=== PATIENT | female | born 1970 | race Caucasian/White ===

== ENCOUNTER → 2016-03-26 | Outpatient (CLI) | payer BC ==
[~2016-03-26] MED LIST: AMOX500C2 PO; BENAZAPRIL; ESTR0.5T PO; FLUC100T PO; HYDR-3730 PO; MTP25TSR PO; OFLO5DRO7 OT; SERT25TA PO
--- OUTSIDE RECORDS SUMMARY | 2016-03-26 13:00 | XMS REPORT | Continuity of Care Document ---
Author Author [facility] Organization [facility] Address Unknown Phone Unavailable Care Team Providers Care Accountant Auditor Name Role Phone DONNELL YOUSSEF DO PCP Insurance Providers Payer Name Policy Number Subscriber Name Relationship [id number] Jessy Jimenes 01 Advance Directives Directive Response Recorded Date/Time Advance Directives No 01/23/16 2:28pm Health Care Power of Heavy Equipment Engine Mechanic No 01/23/16 2:28pm Organ Donor Yes 01/23/16 2:28pm Resuscitation Status Full Code 01/23/16 2:28pm Chief Complaint and Reason for Visit Chief Complaint Ear Problems Reason for Visit recent tympanic membrane perforation Problems Active Problems Medical Problem Onset Date Status Acute otitis media with perforated tympanic membrane Unknown Acute Medications Current Home Medications Medication Dose Units Route Directions Days/Qty Instructions Start Date Sertraline Hcl 25 Mg 25 Mg Oral 04/13/11 [Benazapril] 04/13/11 Metoprolol Succinate 25 Mg 1 Each Oral Daily 15 04/13/11 Estradiol 0.5 Mg 0.5 Mg Oral Bedtime 04/23/11 Fluconazole 100 Mg 100 Mg Oral Daily 10 01/21/16 Amoxicillin 500 Mg 1,000 Mg Oral Three Times A Day 42 01/21/16 Hydrocodone/Acetaminophen 1 Each 1 Each Oral Every 4HRS as needed for Pain 20 01/21/16 Ofloxacin 5 Ml 10 Drops Otic Twice A Day 1 10 drops to the left ear BID x7-10 d 01/21/16 Social History Social History Problem Response Recorded Date/Time Alcohol Use Denies Use 01/23/2016 2:28pm Recreational Drug Use No 01/23/2016 2:28pm Recent Foreign Travel No 01/23/2016 2:25pm Recent Infectious Disease Exposure No 01/23/2016 2:25pm Hospitalization with Isolation Denies 01/23/2016 2:25pm Smoking Status Never a Smoker 01/23/2016 2:28pm Recent Hopitalizations No 01/23/2016 2:28pm Hospitalization with Isolation Denies 01/23/2016 2:25pm Query Response Start Date Stop Date Smoking Status Never a Smoker Hospital Discharge Instructions No hospital discharge instructions. Plan of Care Discharge Date 01/23/16 3:48pm Disposition 01 HOME, SELF-CARE Condition at Discharge Stable/Unchanged Instructions/Education Provided Ruptured Eardrum (DC) Prescriptions See Medication Section Referrals DONNELL YOUSSEF DO - Primary Care Physician Additional Instructions/Education All discharge instructions reviewed with patient and/or family. Voiced understanding. Continue present antibiotics Make an appointment to see Dr. King for expert follow-up Functional Status No functional status results. Allergies, Adverse Reactions, Alerts No known allergies. Immunizations No immunization records. Vital Signs Acute Vital Signs Vital Response Date/Time Temperature (Fahrenheit) 98.4 degrees F (97.6 - 99.5) 01/23/2016 4:01pm Temperature (Calculated Celsius) 36.14738 degrees C (36.4 - 37.5) 01/23/2016 4:01pm Temperature Source Temporal 01/23/2016 4:01pm Pulse Rate (adult) 80 bpm (60 - 90) 01/23/2016 4:01pm Pulse Rate (Schoolage 6-12yrs) 68 bpm (60 - 90) 01/21/2016 6:40pm Respiratory Rate 18 bpm (12 - 24) 01/23/2016 4:01pm O2 Sat by Pulse Oximetry 97 % (88 - 100) 01/23/2016 4:01pm Respiratory Rate (SchoolAge 6-12yrs) 18 bpm (16 - 22) 01/21/2016 6:40pm Blood Pressure 120/78 mm Hg 01/23/2016 4:01pm Blood Pressure Systolic (SchoolAge 6-12yrs) 113 mm Hg (100 - 115) 2015 6:40pm Blood Pressure Diastolic (SchoolAge 6-12yrs) 63 mm Hg (60 - 65) 2015 6:40pm Blood Pressure Mean 92 mm Hg 01/23/2016 2:25pm Pain Numeric Pain Scale 7 01/23/2016 4:01pm Height (Feet) 5 feet 01/23/2016 2:25pm Height (Inches) 0 inches 01/23/2016 2:25pm Height (Calculated Centimeters) 152.860824 cm 01/23/2016 2:25pm Weight (Pounds) 200 pounds 01/23/2016 2:25pm Weight (Calculated Grams) 91656.475 gm 01/23/2016 2:25pm Weight (Calculated Kilograms) 90.725225 kilograms 01/23/2016 2:25pm Calculated BMI 39.06 01/23/2016 2:25pm Capillary Refill Capillary Refill Less Than 3 Seconds 01/23/2016 2:25pm Results No known relevant diagnostic tests, laboratory data and/or discharge summary. Procedures No known history of procedures. Encounters Encounter Location Arrival/Admit Date Discharge/Depart Date Attending Provider Registered Emergency Room [facility] 01/23/16 2:20pm CROW MUSA MD Departed Emergency Room [facility] 01/21/16 6:23pm 01/20 8:43pm YANG MCKEON Recent Diagnosis
--- NOTE | 2016-03-26 15:18 | Diagnostic Imaging Report ---
Left shoulder. INDICATION: Left axillary mass. FINDINGS: Three views were obtained. There is no fracture, dislocation, or acute bony abnormality evident. There is moderate degenerative disease of the shoulder joint. Soft tissues are unremarkable. In particular, there is no sign of an axillary mass. IMPRESSION: 1. There is no evidence for an acute bony abnormality. 2. There is no sign of a left axillary mass. Reportedly, ultrasound of the left axilla is pending for further evaluation. Dictated by: Dictated on workstation # [id number]
--- NOTE | 2016-03-26 19:26 | Diagnostic Imaging Report ---
Ultrasound left breast INDICATION: Left axillary mass At the time of the previous bilateral diagnostic mammogram and left breast ultrasound exam of 02/13/15, there was clinical concern regarding a palpable abnormality in the upper-outer aspect of the left breast. Those exams fail to show any sign of malignancy or of a cystic mass. On this study, there is still no discrete solid or cystic mass within the left upper outer quadrant or axilla. If there is indeed a clinically palpable mass present, then biopsy should still be considered. IMPRESSION: 1. There is no discrete solid or cystic mass in the upper-outer aspect of the left breast or left axilla. Clinical followup is recommended. 2. I would recommend that the patient have her annual bilateral screening mammogram within the next month. ACR BI-RADS Category 1: Negative. Dictated by: Dictated on workstation # [id number]
== END ==
LOC: RAD 12:55
PROVIDERS: ATTEND Surgery
DX: N63 Unspecified lump in breast (principal)
CPT/HCPCS: 73030; 76642

== ENCOUNTER 2016-10-05 15:15 | Emergency (ER) | payer BC ==
[~2016-10-05] VITALS: Ht 152.4 cm; Wt 95.3 kg
[2016-10-05] MEDS ORDERED: LISI1TAB8 (15:35)
[2016-10-05] MEDS ORDERED: DEXT20TA8 (15:35)
[2016-10-05] MEDS ORDERED: NAPR500T PO (15:41)
--- NOTE | 2016-10-05 15:41 | ED Upper Extremity ---
General Chief Complaint: Upper Extremity Stated Complaint: RT SHOULDER PAIN Nursing Triage Note: pt reports injury to r shoulder 3 years ago but worse the past two days. pt reports pain when lift with her arm straight. pt reports it feels like "my shoulder is locked up" Nursing Sepsis Screen: No Definite Risk Source: patient Exam Limitations: no limitations History of Present Illness Time seen by provider: 15:38 Initial Comments ER with right shoulder pain worse with full extension began last night. No history of this. No known injury, though she has been doing a lot of painting recently. Onset: yesterday Severity: moderate Pain/Injury Location: right shoulder Method of Injury: sports injury Modifying Factors: Worse With Movement Allergies and Home Medications Allergies Coded Allergies: No Known Drug Allergies (Unverified , 04/13/11) Home Medications Dextroamphetamine/Amphetamine 20 Mg Tablet, #90 (Reported) Hydrocodone/Acetaminophen 1 Each Tablet, 1 EACH PO Q4H PRN for PAIN-MODERATE, # 10 Prescribed by: DIMITRY FOFANA on 10/05/16 1558 Lisinopril/Hydrochlorothiazide 1 Each Tablet, #30 (Reported) Naproxen 500 Mg Tablet, 500 MG PO BID PRN for PAIN-MODERATE TO SEVERE, #20 Prescribed by: DIMITRY FOFANA on 10/05/16 1541 [Benazapril] , (Reported) Constitutional: see HPI EENTM: see HPI Respiratory: no symptoms reported Cardiovascular: no symptoms reported Genitourinary: no symptoms reported Musculoskeletal: see HPI Skin: no symptoms reported Psychiatric/Neurological: No Symptoms Reported Past Cyiillf-Wrqcgb-Mxpabn Hx Patient Social History Alcohol Use: Occasionally Uses Recreational Drug Use: No Smoking Status: Never a Smoker Recent Foreign Travel: No Contact w/Someone Who Travel: No Recent Infectious Disease Expo: No Recent Hopitalizations: No Immunizations Up To Date Tetanus Booster (TDap): Unknown Surgeries HX Surgeries: Yes Surgeries: Bladder Surgery, Gallbladder, Hysterectomy Respiratory Hx Respiratory Disorders: No Cardiovascular Hx Cardiac Disorders: Yes Cardiac Disorders: Hypertension Neurological Hx Neurological Disorders: No Genitourinary Hx Genitourinary Disorders: No Gastrointestinal Hx Gastrointestinal Disorders: No Musculoskeletal Hx Musculoskeletal Disorders: No Endocrine Hx Endocrine Disorders: No HEENT HX ENT Disorders: No Cancer Hx Cancer: No Psychosocial Hx Psychiatric Problems: Yes Behavioral Health Disorders: Depression Blood Transfusions Adverse Reaction to a Blood Tr: No Physical Exam Vital Signs Vital Sign - Last 12Hours 10/05/16 15:27 Temp 97.1 Pulse 90 Resp 18 B/P (MAP) 144/94 Pulse Ox 100 Capillary Refill : Less Than 3 Seconds General Appearance: WD/WN, no apparent distress HEENT: PERRL/EOMI, normal ENT inspection Neck: non-tender, full range of motion Respiratory: no respiratory distress, no accessory muscle use Gastrointestinal: normal bowel sounds, non tender, soft Shoulder: normal inspection, No deformity, No ecchymosis, limited ROM, pain, No soft tissue tenderness, No swelling Elbow/Forearm: normal inspection, non-tender Wrist: Yes normal inspection, Yes non-tender Hand: normal inspection, non-tender Neurologic/Tendon: normal sensation, normal motor functions, normal tendon functions Neurologic/Psychiatric: acidizer II-XII nml as tested, no motor/sensory deficits, alert, normal mood/affect, oriented x 3 Skin: normal color, warm/dry Progress/Results/Core Measures Results/Orders My Orders Orders - DIMITRY FOFANA APRN Shoulder, Right, 3 Views (10/05/16 15:35) Vital Signs/I&O Vital Sign - Last 12Hours 10/05/16 15:27 Temp 97.1 Pulse 90 Resp 18 B/P (MAP) 144/94 Pulse Ox 100 Blood Pressure Mean: 111 Departure Impression Impression: Primary Impression: Internal derangement of right shoulder Disposition: 01 HOME, SELF-CARE Condition: Stable Departure-Patient Inst. Decision time for Depature: 15:40 Referrals: MICHAEL TOWNSEND MD, JOHN T MD STRINGER, ROBERT F DO SULLIVAN, WILLIAM J DO (PCP/Family) Primary Care Physician ZACK SALVADOR MD Patient Instructions: How to Use a Shoulder Sling Add. Discharge Instructions: 1. I'll up with Dr. Pearson this Wednesday 11 a.m. for further evaluation All discharge instructions reviewed with patient and/or family. Voiced understanding. Scripts Hydrocodone/Acetaminophen ([place] 5-325 Tablet) 1 Each Tablet 1 EACH PO Q4H Y for PAIN-MODERATE, #10 TAB Prov: DIMITRY FOFANA APRN 10/05/16 Naproxen (Naprosyn) 500 Mg Tablet 500 MG PO BID Y for PAIN-MODERATE TO SEVERE, #20 TAB Prov: DIMITRY FOFANA APRN 10/05/16 DIMITRY FOFANA APRN Oct 05, 2016 15:41
[2016-10-05] MEDS ORDERED: HYDR-757 PO (15:58)
--- NOTE | 2016-10-05 16:21 | Diagnostic Imaging Report ---
EXAMINATION: Three views of the right shoulder. INDICATION: Right shoulder pain. FINDINGS: No fracture, dislocation, or radiopaque foreign body. The glenohumeral and acromioclavicular joints appear unremarkable. IMPRESSION: Unremarkable exam. Dictated by: Dictated on workstation # [id number]
[2016-10-05 16:37] VITALS: BP 144/94
== END 2016-10-05 16:37 | disposition home or self-care (01) ==
LOC: EDUNIT# 15:15 → ER 15:17
DX: M24.811 Other specific joint derangements of right shoulder, not elsewhere classified (principal); F32.9 Major depressive disorder, single episode, unspecified; I10 Essential (primary) hypertension; Z90.710 Acquired absence of both cervix and uterus; Z87.828 Personal history of other (healed) physical injury and trauma
CPT/HCPCS: 73030; 99282

== ENCOUNTER → 2016-10-12 | Outpatient (CLI) | payer BC ==
[~2016-10-12] MED LIST changes: +DEXT20TA8; +HYDR-757 PO; +LISI1TAB8; +NAPR500T PO
--- NOTE | 2016-10-12 11:45 | Diagnostic Imaging Report ---
PROCEDURE: MRI right joint upper extremity without contrast. TECHNIQUE: Multiplanar, multisequence non contrast-enhanced MRI of the right upper extremity was accomplished. INDICATION: Right shoulder pain. There are no previous MRI examinations available for comparison. The plain film examination of the right shoulder performed on 10/05/2016, failed to show any sign of an acute abnormality. On the T2 fat-saturated coronal series of this exam, there is a very small area of slightly increased signal along the anterior insertion of the rotator cuff. I suspect that this represents a small rim-rent tear. The supraspinatus muscle itself is not retracted or bunched. The acromioclavicular joint is hypertrophied, and this does result in mild narrowing of the outlet for the supraspinatus muscle. The biceps tendon and the subscapularis tendon are intact. There is no evidence for a tear of the labrum. There is no sign of a joint effusion. There is no abnormal signal arising from the osseous structures to suggest bone edema or a fracture. IMPRESSION: 1. There is a small rim-rent tear along the anterior insertion of the rotator cuff. The supraspinatus muscle is not retracted or bunched, however. 2. There is hypertrophy of the acromioclavicular joint, and this does result in mild narrowing of the outlet for the supraspinatus muscle. 3. The labrum is intact. 4. There is no sign of an acute bony abnormality. Dictated by: Dictated on workstation # [id number]
== END ==
LOC: RAD 08:34
PROVIDERS: ATTEND Nurse Practitioner Family
DX: M25.511 Pain in right shoulder (principal)
CPT/HCPCS: 73221

== ENCOUNTER → 2017-07-20 | Outpatient (CLI) | payer BC ==
[~2017-07-20] MED LIST changes: +NAPR-1071 PO; -NAPR500T PO
--- NOTE | 2017-07-20 13:46 | Diagnostic Imaging Report ---
INDICATION: Low back pain. TECHNIQUE: Three views of the lumbar spine were obtained. FINDINGS: The alignment of the lumbar spine is normal. The vertebral body heights are well-maintained. There is no spondylolysis or spondylolisthesis. No fractures are identified. IMPRESSION: Unremarkable lumbar spine series. Dictated by: Dictated on workstation # [id number]
== END ==
LOC: RAD 12:48
PROVIDERS: ATTEND Nurse Practitioner Family
DX: M54.16 Radiculopathy, lumbar region (principal)
CPT/HCPCS: 72100

== ENCOUNTER → 2017-07-28 | Outpatient (CLI) | payer BC ==
--- NOTE | 2017-07-28 17:15 | Diagnostic Imaging Report ---
PROCEDURE: MRI lumbar spine. TECHNIQUE: Multiplanar, multisequence MRI of the lumbar spine was performed without contrast. INDICATION: Back pain. The previous MRI lumbar spine exam performed on 10/23/14 noted moderate facet arthropathy of the lumbar spine. There was no evidence for central canal or neuroforaminal stenosis, however. FINDINGS: On the T2 sagittal series of this exam, the vertebral body heights and alignment are within normal limits and similar to the prior study. The intervertebral spaces are fairly well maintained although there is desiccation of the disc at every level. As noted on the prior exam, there is facet arthropathy at L5-S1 and L4-L5 and L3-L4. Those findings do not seem to have changed significantly since the prior exam. As on the previous study, the L4-L5 level appears to be the most significantly affected. However, there is still no evidence for central stenosis at any of these levels. There is no neuroforaminal narrowing either. The remainder of the lumbar spine is unchanged when compared to the prior study. No new abnormality has developed. There is no abnormal signal arising from the cord or the vertebral bodies to indicate an acute abnormality. There is no sign of a paraspinal mass. IMPRESSION: 1. The facet arthropathy at L3-L4, L4-L5 and L5-S1 noted on the prior exam has not progressed significantly. There is still no evidence for spinal stenosis or nerve root encroachment at any level. 2. The remainder of the lumbar spine is also unremarkable for spinal stenosis or nerve root encroachment. 3. There is no sign of an acute bony abnormality or of a cord lesion. Dictated by: Dictated on workstation # [id number]
== END ==
LOC: RAD 16:12
PROVIDERS: ATTEND Nurse Practitioner Family
DX: M46.87 Other specified inflammatory spondylopathies, lumbosacral region (principal)
CPT/HCPCS: 72148

== ENCOUNTER → 2017-09-15 | Outpatient (CLI) | payer BC ==
--- NOTE | 2017-09-15 17:20 | Diagnostic Imaging Report ---
CLINICAL INDICATION: Patient having pain and stiffness in the neck for the past couple of months. EXAM: X-ray of the cervical spine, three views. COMPARISON: None. FINDINGS: There is no acute cervical spine fracture or dislocation. There is straightening of the cervical spine posture. There is mild facet arthropathy. The intervertebral disc heights are well maintained. There is no significant prevertebral soft tissue swelling. Odontoid views are unremarkable. IMPRESSION: 1: There is no acute fracture or dislocation. 2: There is straightening of the cervical spine posture with mild cervical spine degenerative disease. Dictated by: Dictated on workstation # [id number]
== END ==
LOC: RAD 16:42
PROVIDERS: ATTEND Internal Medicine
DX: M47.812 Spondylosis without myelopathy or radiculopathy, cervical region (principal)
CPT/HCPCS: 72040

== ENCOUNTER 2017-12-08 06:56 | Outpatient (CLI) | payer BC ==
[~2017-12-08] VITALS: Ht 152.4 cm; Wt 99.8 kg
[~2017-12-08 06:56] MED LIST changes: +HYDR-4226 PO; -HYDR-757 PO
[2017-12-08] MEDS ORDERED: LISI1TAB8 PO (15:19)
[2017-12-08] MEDS ORDERED: AMPH25CA3 PO (15:19)
== END 2017-12-08 15:27 | disposition home or self-care (01) ==
LOC: PREOP 06:56
PROVIDERS: ATTEND Surgery
DX: Z01.818 Encounter for other preprocedural examination (principal)

== ENCOUNTER 2017-12-13 09:51 | Day surgery (SDC) | payer BC ==
[~2017-12-13] VITALS: Ht 152.4 cm; Wt 99.8 kg
[~2017-12-13 09:51] MED LIST changes: +AMPH25CA3 PO; +LISI1TAB8 PO
[2017-12-13 10:00] VITALS: BP 109/75
[2017-12-13] MEDS ORDERED: NS IV 500 ML 500 ML IV PRN (10:05)
[2017-12-13] MEDS ORDERED: MIDAZOLAM 2 MG/2 ML (VERSED) VIAL IVP ONE (10:15)
[2017-12-13] MEDS ORDERED: fentaNYL INJECTION 100 MCG/2 ML AMP IVP ONE (10:15)
[2017-12-13] MEDS ORDERED: MIDAZOLAM 2 MG/2 ML (VERSED) VIAL ONE ×4 (13:12→13:13)
[2017-12-13] MEDS ORDERED: fentaNYL INJECTION 100 MCG/2 ML AMP ONE (13:12)
--- NOTE | 2017-12-13 14:00 | History & Physicial ---
History of Present Illness History of Present Illness Reason for visit/HPI to undergo colonoscopy to investigate rectal bleeding. In addition, she reports a family history of colon cancer in her grandmother. Date of Admission 12/13/17 Date Seen by a Provider: Dec 13, 2017 Time Seen by a Provider: 12:15 I consulted on this patient on 12/13/17 13:36 Attending Physician Joaquin Melendrez MD Admitting Physician Remy Pearson DO Consult Allergies and Home Medications Allergies Coded Allergies: No Known Drug Allergies (Unverified , 12/08/17) Home Medications Dextroamphetamine/Amphetamine 25 Mg Cap.er.24h, 25 MG PO DAILY, (Reported) Lisinopril/Hydrochlorothiazide 1 Each Tablet, 1 EACH PO DAILY, (Reported) Patient Home Medication List Home Medication List Reviewed: Yes Past Bvfydsd-Djetqj-Ebretc Hx Patient Social History Marrital Status: Employed/Student: employed Alcohol Use: Occasionally Uses Recreational Drug Use: No Smoking Status: Never a Smoker Recent Foreign Travel: No Contact w/other who traveled: No Recent Hopitalizations: No Recent Infectious Disease Expo: No Immunizations Up To Date Tetanus Booster (TDap): Unknown Seasonal Allergies Seasonal Allergies: Yes (MILD) Surgeries Yes Bladder Surgery, Gallbladder, Hysterectomy Respiratory No Currently Using CPAP: Yes Cardiovascular Yes Hypertension Neurological No Genitourinary No UTI-Chronic Gastrointestinal No Musculoskeletal No Endocrine History of Endocrine Disorders: No HEENT Loss of Vision: Bilateral Hearing Impairment: Denies Cancer No Psychosocial History of Psychiatric Problem: Yes Behavioral Health Disorders: Depression Integumentary History of Skin or Integumenta: No Blood Transfusions History of Blood Disorders: No Adverse Reaction to a Blood Tr: No (N/A) Family Medical History Family Hx: Colon cancer Review of Systems Constitutional: no symptoms reported EENTM: no symptoms reported Cardiovascular: no symptoms reported Gastrointestinal: see HPI Genitourinary: no symptoms reported Musculoskeletal: no symptoms reported Skin: no symptoms reported Psychiatric/Neurological: No Symptoms Reported Physical Exam Vital Signs Capillary Refill : Height, Weight, BMI Height: 5'0.00" Weight: 220lbs. 0.0oz. 99.452351gi; 43.0 BMI Method:Stated General Appearance: Anxious Neck: Normal Inspection Respiratory: Lungs Clear Cardiovascular: Regular Rate, Rhythm Gastrointestinal: Non Tender, Soft Rectal: Deferred Neurologic/Psychiatric: Alert, Oriented x3 Skin: Warm/Dry Assessment/Plan Assessment and Plan lady with a family history of colon cancer and symptoms of rectal bleeding. For colonoscopy Admission Diagnosis Admission Status: Other (Outpt Proc) JOAQUIN MELENDREZ MD Dec 13, 2017 14:00
--- NOTE | 2017-12-13 14:00 | Conscious Sedation/ASA ---
Conscious Sedation Pre-Proced Time 12:30 ASA Score 2 For ASA 3 and 4: Consider anesthesia and medical clearance. Also, for patients with a history of failed moderate sedation consider anesthesia. Airway Lungs Heart ASA score ASA 1: a normal healthy patient ASA 2: a patient with a mild systemic disease (mid diabetes, controlled hypertension, obesity ASA 3: a patient with a severe systemic disease that limits activity (angina , COPD, prior Myocardial infarction) ASA 4: a patient with an incapacitating disease that is a constant threat to life (CHF, renal failure) ASA 5: a moribund patient not expected to survive 24 hrs. (ruptured aneurysm) ASA 6: a declared brain patient whose organs are being harvested. For emergent operations, add the letter E after the classification Mallampati Classification Grade 2 Sedation Plan Discussed options with patient/fam The patient is an appropriate candidate to undergo the planned procedure, sedation, and anesthesia. The patient immediately re-assessed prior to indication. JOAQUIN MELENDREZ MD Dec 13, 2017 14:00
--- NOTE | 2017-12-13 14:04 | Endo Procedure Record ---
Endo Procedure Report Date of Procedure Last Colonoscopy: No Dec 13, 2017 Surgeon (s) JOAQUIN MELENDREZ MD Post Procedure/Op Diagnosis mild degree of internal hemorrhoids. Very few diverticula in the sigmoid colon Procedure Performed colonoscopy to cecum Description of Procedure Anesthesia Type: Conscious Sedation Specimen(s) collected/removed None Description of the Procedure Indication for procedure: This lady came in for colonoscopy to investigate rectal bleeding of 2 months duration and on the basis of a family history of colon cancer. Informed consent was obtained after reviewing the procedure in detail. Description of procedure: She was placed in left lateral position and her vital signs were monitored. Conscious sedation was achieved using Versed and fentanyl. Digital rectal examination was unremarkable. The colonoscope was then introduced into the rectum and advanced to the cecum. The quality of bowel preparation was acceptable. The scope was then withdrawn slowly and the mucosa examined in a systematic fashion. Findings: 1. A mild degree of internal hemorrhoids, the possible source of her bleeding 2. Very few sigmoid diverticulae she tolerated the procedure well and was taken back to the nursing area in a stable condition. Impression: Rectal bleeding due to internal hemorrhoids. Would recommend conservative therapy, avoiding constipation etc. Positive family history. Recommend screening colonoscopy in 5 years. Copy Copies To 1: DONNELL YOUSSEF XAVIER M MD Dec 13, 2017 14:04
[2017-12-13 14:05] VITALS: BP 92/41
--- NOTE | 2017-12-13 14:06 | Discharge Inst-Simple/Standard ---
Discharge Inst-Standard Discharge Medications New, Converted or Re-Newed RX: Other Patient Instructions/Follow Up Plan of Care/Instructions/FU: repeat colonoscopy in 5 years Activity as Tolerated: Yes Discharge Diet: No Restrictions JOAQUIN MELENDREZ MD Dec 13, 2017 14:06
[2017-12-13 14:23] VITALS: BP 104/63
[2017-12-13 14:25] VITALS: BP 104/63
[2017-12-13 14:28] VITALS: BP 104/63
== END 2017-12-13 14:30 | disposition home or self-care (01) ==
LOC: ENDO 09:51
PROVIDERS: ATTEND Surgery
DX: K64.8 Other hemorrhoids (principal); K57.30 Diverticulosis of large intestine without perforation or abscess without bleeding; Z80.0 Family history of malignant neoplasm of digestive organs; I10 Essential (primary) hypertension; Z87.440 Personal history of urinary (tract) infections; Z79.899 Other long term (current) drug therapy

== ENCOUNTER → 2018-01-07 | Outpatient (CLI) | payer BC ==
--- NOTE | 2018-01-07 17:59 | Diagnostic Imaging Report ---
PROCEDURE: CT left lower extremity without contrast. TECHNIQUE: Multiple contiguous axial images were obtained through the left lower extremity without the use of intravenous contrast. Sagittal and coronal reformations were then performed. INDICATION: Left thigh tingling and numbness for months. Mass in the left thigh. L3 radiculopathy. COMPARISON: None FINDINGS: There is marked noise about the pelvis and upper left thigh. There are mild degenerative changes in the left knee and the pubic symphysis. No acute osseous abnormality is seen. No aggressive osseous lesions are seen in the left femur. There is no significant left knee joint effusion. No muscular atrophy is seen. A BB was placed in the area of the palpable abnormality at the lateral left mid thigh. No soft tissue fluid collections or masses are seen on this noncontrast exam. IMPRESSION: 1. No acute abnormality seen in the left thigh or femur. No masses or fluid collections are seen. Dictated by: Dictated on workstation # [id number]
== END ==
LOC: RAD 14:22
PROVIDERS: ATTEND Internal Medicine
DX: M54.16 Radiculopathy, lumbar region (principal); R20.0 Anesthesia of skin; R20.2 Paresthesia of skin; R22.42 Localized swelling, mass and lump, left lower limb
CPT/HCPCS: 73700

== ENCOUNTER → 2018-08-17 | Outpatient (CLI) | payer BC ==
--- NOTE | 2018-08-17 16:19 | Diagnostic Imaging Report ---
INDICATION: Persistent cough. PA and lateral chest obtained at 04:01 p.m. and compared to 04/13/2011. Heart and mediastinal silhouette are normal in appearance. The lungs are clear. There is no pneumothorax or pleural fluid. IMPRESSION: Negative chest. Dictated by: Dictated on workstation # [id number]
== END ==
LOC: RAD 15:41
PROVIDERS: ATTEND Family Medicine
DX: R05 Cough (principal)
CPT/HCPCS: 71046

== ENCOUNTER → 2018-08-25 | Outpatient (CLI) | payer BC | LOC: SLEEP 13:49 | PROVIDERS: ATTEND Otolaryngology Otolaryngology/Facial Plastic Surgery | DX: G47.33 Obstructive sleep apnea (adult) (pediatric) (principal); G47.10 Hypersomnia, unspecified; R06.83 Snoring ==

== ENCOUNTER → 2018-09-05 | Outpatient (CLI) | payer BC | LOC: CARD 12:29 | PROVIDERS: ATTEND Family Medicine | DX: I51.7 Cardiomegaly (principal); R06.00 Dyspnea, unspecified | CPT/HCPCS: 93306 ==

== ENCOUNTER → 2018-09-28 | Outpatient (CLI) | payer BC ==
[~2018-09-28] MED LIST changes: +HOLD METFORMIN - RECEIVED CONTRAST 20 ML VIAL IV SCH; +IOHEXOL 350 MG/ML 100 ML (OMNIPAQUE 350) VIAL IV ONE; +NS 100 ML (IVPB) BAG IV ONE
--- NOTE | 2018-09-28 12:54 | Diagnostic Imaging Report ---
PROCEDURE: CT chest with contrast only. TECHNIQUE: Multiple contiguous axial images were obtained through the chest after administration of intravenous contrast. Auto Exposure Controls were utilized during the CT exam to meet ALARA standards for radiation dose reduction. INDICATION: Cough and dyspnea. COMPARISON: No prior studies are available for comparison. FINDINGS: No axillary lymphadenopathy is identified. No hilar or mediastinal lymphadenopathy is identified. No pericardial or pleural fluid is detected. There is a fat-containing diaphragmatic hernia in the posteromedial aspect of the left base. The lungs are clear. No infiltrates are detected. No masses are seen. The central airways are patent. The upper abdomen is unremarkable. IMPRESSION: Fat-containing diaphragmatic hernia on the left, as described. Otherwise, unremarkable CT of the chest. Dictated by: Dictated on workstation # [id number]
--- NOTE | 2018-09-28 13:15 | Diagnostic Imaging Report ---
PROCEDURE: US Thyroid. TECHNIQUE: Multiple real-time grayscale images were obtained of the thyroid in various projections. INDICATION: Right neck mass swelling. FINDINGS: No comparison available. The right lobe of the thyroid measures 4.1 x 1.8 x 1.7 cm. It is normal in size and echogenicity. No suspicious nodules are seen. The left lobe of the thyroid measures 3.2 x 1.6 x 1.6 cm. It is normal in size and echogenicity. There is a left thyroid nodule measuring 5 mm which appears cystic and contains a colloid nodule. This is consistent with a colloid cyst and is not suspicious. In the region of the palpable abnormality in the right neck, there is a lymph node with a short axis diameter of 7.4 mm. This appears to contain a normal-appearing fatty hilum. No other abnormality is seen. IMPRESSION: 1. No suspicious thyroid nodules. 2. Palpable abnormality in the right neck appears to correspond to a normal-appearing lymph node. Dictated by: Dictated on workstation # [id number]
== END ==
LOC: RAD 12:01
PROVIDERS: ATTEND Family Medicine
DX: K44.9 Diaphragmatic hernia without obstruction or gangrene (principal); R22.1 Localized swelling, mass and lump, neck; R06.00 Dyspnea, unspecified
CPT/HCPCS: 71260; 76536

== ENCOUNTER → 2018-09-30 | Outpatient (CLI) | payer BC ==
[~2018-09-30] MED LIST changes: -HOLD METFORMIN - RECEIVED CONTRAST 20 ML VIAL IV SCH; -IOHEXOL 350 MG/ML 100 ML (OMNIPAQUE 350) VIAL IV ONE; -NS 100 ML (IVPB) BAG IV ONE
[2018-09-30 10:34] LABS: ABG BASE EXCESS -0.7 MMOL/L (-2.5-2.5); ABG OXYGEN SATURATION 97 % (94-100); ABG PCO2 38 MMHG (35-45); ABG PH 7.41 (7.37-7.43); ABG PO2 81 MMHG (79-93); ABG TCO2 24.5 MMOL/L (21.0-31.0)
[2018-09-30 10:35] LABS: ALLENS TEST YES-POS; INSPIRED O2 RA; PATIENT TEMP 98.4; VENTILATOR NO
== END ==
LOC: RT 09:53
DX: K21.9 Gastro-esophageal reflux disease without esophagitis (principal); G47.33 Obstructive sleep apnea (adult) (pediatric)
CPT/HCPCS: 36600; 82805

== ENCOUNTER → 2018-10-25 | Outpatient (CLI) | payer BC ==
--- NOTE | 2018-10-25 13:20 | Diagnostic Imaging Report ---
PROCEDURE: MRI left joint lower extremity without contrast. TECHNIQUE: Multiplanar, multisequence non contrast-enhanced MRI of the left lower extremity was accomplished. INDICATION: Left knee pain after fall. FINDINGS: The anterior cruciate and posterior cruciate ligaments are intact. Both the superficial and deep components of the medial collateral ligament are intact. The biceps femoris, fibular collateral, and iliotibial band are intact. Popliteus tendon is intact. There is some mild myxoid degeneration in the posterior horn of the medial meniscus which is otherwise without acute tear. The lateral meniscus is normal in signal intensity and morphology. There is some chondromalacia in the medial knee joint compartment with a small amount of underlying marrow edema in the lateral aspect of the medial femoral condyle. The articular cartilage in the lateral knee joint compartment is well maintained as it is in the patellofemoral joint. There is very minimal knee joint effusion. The quadriceps tendon and patellar tendons are intact. IMPRESSION: 1. 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 2. Minimal knee joint effusion. 3. 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 4. No other internal derangement of the knee. Dictated by: Dictated on workstation # [id number]
== END ==
LOC: RAD 07:33
PROVIDERS: ATTEND Family Medicine
DX: M94.262 Chondromalacia, left knee (principal); M23.322 Other meniscus derangements, posterior horn of medial meniscus, left knee; M23.52 Chronic instability of knee, left knee; W19.XXXA Unspecified fall, initial encounter
CPT/HCPCS: 73721

== ENCOUNTER → 2018-11-17 | Outpatient (CLI) | payer BC ==
--- NOTE | 2018-11-17 10:47 | Diagnostic Imaging Report ---
PROCEDURE: CT sinuses without contrast TECHNIQUE: Multiple contiguous axial images were obtained through the sinuses without the use of intravenous contrast. Coronal and sagittal reformations were then performed. Auto Exposure Controls were utilized during the CT exam to meet ALARA standards for radiation dose reduction. INDICATION: Chronic sinusitis and cough. COMPARISON: No prior studies are available for comparison. FINDINGS: The frontal sinuses are clear. Ethmoid air cells and sphenoid sinus are clear. The right maxillary sinus demonstrates trace mucosal thickening inferiorly. There is a small mucous retention cyst or polyp along the medial aspect of the left maxillary sinus measuring 9 mm. No air-fluid levels are seen. Ostiomeatal complexes are patent bilaterally. Nasal septum is midline. Visualized mastoid air cells are well aerated. IMPRESSION: Small mucous retention cyst or polyp in the left maxillary sinus. Study is otherwise unremarkable. There are no findings to suggest sinusitis. Dictated by: Dictated on workstation # [id number]
== END ==
LOC: RAD 09:57
PROVIDERS: ATTEND Otolaryngology Otolaryngology/Facial Plastic Surgery
DX: J32.9 Chronic sinusitis, unspecified (principal); R05 Cough
CPT/HCPCS: 70486

== ENCOUNTER 2019-01-18 17:00 | Emergency (ER) | payer BC, OTHER ==
[~2019-01-18] VITALS: Ht 152.4 cm; Wt 90.9 kg
--- NOTE | 2019-01-18 17:29 | ED Fall/Injury ---
General Chief Complaint: Trauma-Non Activation Stated Complaint: NECK PAIN Source: patient Exam Limitations: no limitations History of Present Illness Date Seen by Provider: Jan 18, 2019 Time Seen by Provider: 17:25 Initial Comments To ER with reports of a neck pain. This began after a fall about a week ago while at work at [employer] when she tripped over a children's delayed. She did not hit her head, she has some tingling down the right arm to the fingers inter mittently since the fall. She has a history of 2 bladder surgeries with some pre-existing urinary incontinence which seems to be a bit worse since the fall, some low back pain as well. She was seen at walk-in clinic at [facility] this evening for this and due to midline cervical spine tenderness to palpation to his referred to the emergency room for CT imaging. Occurred: just prior to arrival Severity: moderate Injuries/Pain Location: neck Associated Symptoms (Fall): Denies Symptoms Allergies and Home Medications Allergies Coded Allergies: No Known Drug Allergies (Unverified , 12/08/17) Home Medications Dextroamphetamine/Amphetamine 25 Mg Cap.er.24h, 25 MG PO DAILY, (Reported) Lisinopril/Hydrochlorothiazide 1 Each Tablet, 1 EACH PO DAILY, (Reported) Patient Home Medication List Home Medication List Reviewed: Yes Review of Systems Review of Systems Constitutional: see HPI Eyes: No Symptoms Reported Ears, Nose, Mouth, Throat: no symptoms reported Respiratory: no symptoms reported Cardiovascular: no symptoms reported Genitourinary: no symptoms reported Musculoskeletal: see HPI, back pain, neck pain Skin: no symptoms reported Psychiatric/Neurological: No Symptoms Reported Past Isvxmhl-Jvezlg-Gegbwh Hx Patient Social History Recent Foreign Travel: No Contact w/Someone Who Travel: No Recent Hopitalizations: No Immunizations Up To Date Tetanus Booster (TDap): Unknown Seasonal Allergies Seasonal Allergies: Yes (MILD) Past Medical History Surgeries: Yes Bladder Surgery, Gallbladder, Hysterectomy Respiratory: No Sleep Apnea Currently Using CPAP: Yes Cardiac: Yes Hypertension Neurological: No Genitourinary: No UTI-Chronic Gastrointestinal: No Musculoskeletal: No Endocrine: No Loss of Vision: Bilateral Hearing Impairment: Denies Cancer: No Psychosocial: Yes Depression Integumentary: No Blood Disorders: No Adverse Reaction/Blood Tranf: No (N/A) Family Medical History Colon cancer Physical Exam Vital Signs Vital Signs - First Documented 01/18/19 17:14 Temp 36.8 Pulse 76 Resp 17 B/P (MAP) 145/84 (104) Pulse Ox 99 O2 Delivery Room Air Capillary Refill : Height, Weight, BMI Height: 5'0.00" Weight: 220lbs. 0.0oz. 99.549513iv; 43.0 BMI Method:Stated General Appearance: WD/WN, no apparent distress HEENT: PERRL/EOMI, normal ENT inspection, TMs normal, pharynx normal, other (full range of motion of her neck but increased pain when turning her neck to the right side) Neck: non-tender, full range of motion, tender lateral, tender midline Respiratory: normal breath sounds, no respiratory distress, no accessory muscle use Gastrointestinal: normal bowel sounds, non tender, soft Extremities: normal range of motion, non-tender Neurologic/Psychiatric: alert, normal mood/affect, oriented x 3 Skin: normal color, warm/dry Cameron Coma Score Best Eye Response: (4) Open Spontaneously Best Verbal Response: (5) Oriented Best Motor Response: (6) Obeys Commands [place] Total: 15 Progress/Results/Core Measures Results/Orders My Orders Orders - DIMITRY FOFANA APRN Ct Cervical Spine Wo (01/18/19 17:02) Ct Lumbar Spine Wo (01/18/19 17:25) Vital Signs/I&O 01/18/19 17:14 Temp 36.8 Pulse 76 Resp 17 B/P (MAP) 145/84 (104) Pulse Ox 99 O2 Delivery Room Air Diagnostic Imaging Diagonstic Imaging: CT Comments NAME: LALITA JIMENES [facility] REC#: [id number] PT STATUS: REG ER : 1970 PHYSICIAN: DIMITRY FOFANA APRN ADMIT DATE: 01/18/19/ER Draft POSDate of Exam:01/18/19 CT LUMBAR SPINE WO PROCEDURE: CT lumbar spine without contrast. TECHNIQUE: Multiple contiguous axial images were obtained through the lumbar spine without the use of intravenous contrast. Sagittal and coronal reformations were then performed. Auto Exposure Controls were utilized during the CT exam to meet ALARA standards for radiation dose reduction. DATE: January 18, 2019. INDICATION: 48-year-old female, fall one week ago. Low back pain and tingling sensation in the legs. COMPARISON: MRI lumbar spine July 28, 2017. FINDINGS: The lumbar disc heights are well-preserved. CT is limited for assessment of disc pathology as well as additional nonbony causes of pathology within the spinal canal. There are mild left greater than right facet degenerative changes at L4-L5 and very mild bilateral facet degenerative changes at L4-L5. There is no identified acute fracture of the lumbar spine. There is no identified pars interarticularis defect. There is no compression deformity. There is no identified concerning bone lesion. Partially imaged portions of the sacroiliac joints are unremarkable bilaterally. There is a fat-containing left posterior diaphragmatic hernia. The patient is status post cholecystectomy. IMPRESSION: 1. No identified acute abnormality of the lumbar spine. 2. Mild facet degenerative changes at L4-L5 and L5-S1. 3. Fat-containing left posterior diaphragmatic hernia. Dictated on workstation # [id number] Dict: 01/18/191750 Trans: 01/18/191810 PJE [id number] Interpreted by: PERICO JESUS MD Electronically signed by: NAME: LALITA JIMENES [facility] REC#: [id number] PT STATUS: REG ER : 1970 PHYSICIAN: DIMITRY FOFANA APRN ADMIT DATE: 01/18/19/ER Draft POSDate of Exam:01/18/19 CT CERVICAL SPINE WO PROCEDURE: CT cervical spine without contrast. TECHNIQUE: Multiple contiguous axial images were obtained through the cervical spine without the use of intravenous contrast. Sagittal and coronal reformations were then performed. Auto Exposure Controls were utilized during the CT exam to meet ALARA standards for radiation dose reduction. INDICATION: Status post fall one week ago landing on right side. Tingling sensation to the legs. CORRELATION STUDY: None. FINDINGS: It is noted that there is some incomplete imaging at the most superior aspect, including the craniocervical junction, on the reformatted images. There is straightening and reversal of the normal cervical lordosis. There is trace anterolisthesis of C2 on C3, C3 on C4 and C4 on C5. Vertebral body heights overall appear to be fairly well maintained. The odontoid intact. Occipital condyles are limited in their evaluation but appear to be maintained. Posterior elements demonstrate various degrees of hypertrophic facet arthropathy but overall unremarkable and intact and in normal alignment. The paraspinal soft tissues appear unremarkable. Visualized lung apices are unremarkable. IMPRESSION: Straightening and reversal of the normal cervical lordosis could be owing to simply patient positioning versus splinting and/or spasm. No definitive evidence for acute fracture or traumatic subluxation. Dictated on workstation # [id number] Dict: 01/18/19 1754 Trans: 01/18/19 1824 [facility] [id number] Interpreted by: DAYANARA WATERMAN DO Electronically signed by: Departure Impression Primary Impression: Cervical myofascial strain Qualified Codes: S16.1XXA - Strain of muscle, fascia and tendon at neck level, initial encounter Additional Impression: Brachial plexus injury, right Qualified Codes: S14.3XXA - Injury of brachial plexus, initial encounter Disposition: 01 HOME, SELF-CARE Condition: Stable Departure-Patient Inst. Decision time for Depature: 18:31 Referrals: ARMAAN AHN MD (PCP/Family) Primary Care Physician Patient Instructions: Burners or Stingers (DC), Cervical Muscle Strain Add. Discharge Instructions: 1. Follow-up with Dr. Ahn later this week, the next step may be an MRI if symptoms fail to improve. Return to ER for any concerns. All discharge instructions reviewed with patient and/or family. Voiced understanding. Copy Copies To 1: ARMAAN AHN MD, PETER J APRN Jan 18, 2019 17:29 POS
--- NOTE | 2019-01-18 18:11 | Diagnostic Imaging Report ---
PROCEDURE: CT lumbar spine without contrast. TECHNIQUE: Multiple contiguous axial images were obtained through the lumbar spine without the use of intravenous contrast. Sagittal and coronal reformations were then performed. Auto Exposure Controls were utilized during the CT exam to meet ALARA standards for radiation dose reduction. DATE: January 18, 2019. INDICATION: 48-year-old female, fall one week ago. Low back pain and tingling sensation in the legs. COMPARISON: MRI lumbar spine July 28, 2017. FINDINGS: The lumbar disc heights are well-preserved. CT is limited for assessment of disc pathology as well as additional nonbony causes of pathology within the spinal canal. There are mild left greater than right facet degenerative changes at L4-L5 and very mild bilateral facet degenerative changes at L4-L5. There is no identified acute fracture of the lumbar spine. There is no identified pars interarticularis defect. There is no compression deformity. There is no identified concerning bone lesion. Partially imaged portions of the sacroiliac joints are unremarkable bilaterally. There is a fat-containing left posterior diaphragmatic hernia. The patient is status post cholecystectomy. IMPRESSION: 1. No identified acute abnormality of the lumbar spine. 2. Mild facet degenerative changes at L4-L5 and L5-S1. 3. Fat-containing left posterior diaphragmatic hernia. Dictated by: Dictated on workstation # [id number]
--- NOTE | 2019-01-18 18:25 | Diagnostic Imaging Report ---
PROCEDURE: CT cervical spine without contrast. TECHNIQUE: Multiple contiguous axial images were obtained through the cervical spine without the use of intravenous contrast. Sagittal and coronal reformations were then performed. Auto Exposure Controls were utilized during the CT exam to meet ALARA standards for radiation dose reduction. INDICATION: Status post fall one week ago landing on right side. Tingling sensation to the legs. CORRELATION STUDY: None. FINDINGS: It is noted that there is some incomplete imaging at the most superior aspect, including the craniocervical junction, on the reformatted images. There is straightening and reversal of the normal cervical lordosis. There is trace anterolisthesis of C2 on C3, C3 on C4 and C4 on C5. Vertebral body heights overall appear to be fairly well maintained. The odontoid intact. Occipital condyles are limited in their evaluation but appear to be maintained. Posterior elements demonstrate various degrees of hypertrophic facet arthropathy but overall unremarkable and intact and in normal alignment. The paraspinal soft tissues appear unremarkable. Visualized lung apices are unremarkable. IMPRESSION: Straightening and reversal of the normal cervical lordosis could be owing to simply patient positioning versus splinting and/or spasm. No definitive evidence for acute fracture or traumatic subluxation. Dictated by: Dictated on workstation # [id number]
[2019-01-18 18:49] VITALS: BP 145/84
== END 2019-01-18 18:49 | disposition home or self-care (01) ==
LOC: EDUNIT# 17:00 → ER 17:01
DX: S16.1XXA Strain of muscle, fascia and tendon at neck level, initial encounter (principal); S14.3XXA Injury of brachial plexus, initial encounter; G47.30 Sleep apnea, unspecified; I10 Essential (primary) hypertension; F32.9 Major depressive disorder, single episode, unspecified; R40.2142 Coma scale, eyes open, spontaneous, at arrival to emergency department; R40.2252 Coma scale, best verbal response, oriented, at arrival to emergency department; R40.2362 Coma scale, best motor response, obeys commands, at arrival to emergency department; Z80.0 Family history of malignant neoplasm of digestive organs; Z87.440 Personal history of urinary (tract) infections; Z90.710 Acquired absence of both cervix and uterus; W01.0XXA Fall on same level from slipping, tripping and stumbling without subsequent striking against object, initial encounter; Y92.59 Other trade areas as the place of occurrence of the external cause; Y99.0 Civilian activity done for income or pay
CPT/HCPCS: 72125; 72131

== ENCOUNTER → 2019-02-28 | Outpatient (CLI) | payer BC ==
--- NOTE | 2019-02-28 14:42 | Diagnostic Imaging Report ---
PROCEDURE: MRI lumbar spine. TECHNIQUE: Multiplanar, multisequence MRI of the lumbar spine was performed without contrast. INDICATION: Low back pain. COMPARISON: Correlation is made with prior MRI of the lumbar spine from 07/28/2017. FINDINGS: Curvature and alignment of the lumbar spine is normal. Vertebral body heights are maintained. The marrow signal intensity is unremarkable. No geographic marrow lesion or compression fracture is identified. There is fairly normal height and signal intensity to the lumbar intervertebral discs. Conus is unremarkable at the L1-2 level. T12-L1: The central canal and neural foramina are widely patent. L1-2: There is some ligamentous thickening and facet changes but central canal and neural foramina are widely patent. L2-L3: There is some ligamentous thickening and facet changes but central canal and neural foramina are widely patent. L3-L4: Ligamentous thickening and facet changes are noted. Central canal and neural foramina are widely patent. L4-L5: Ligamentous thickening and facet changes are noted. Central canal is widely patent. Neural foramina appear patent. L5-S1: Central canal and neural foramina are widely patent. There are some degenerative facet changes. Paraspinous tissues are unremarkable. IMPRESSION: Overall stable MRI of the lumbar spine when compared with prior study from 07/28/2017. There is generalized facet arthropathy. No focal disc protrusion, central canal or neural foraminal stenosis is identified. Dictated by: Dictated on workstation # [id number]
== END ==
LOC: RAD 12:55
PROVIDERS: ATTEND Family Medicine
DX: M54.16 Radiculopathy, lumbar region (principal)
CPT/HCPCS: 72148

== ENCOUNTER 2019-04-04 15:57 | Emergency (ER) | payer BC ==
[~2019-04-04] VITALS: Ht 152.4 cm; Wt 102.4 kg
[~2019-04-04 15:57] MED LIST changes: +LISI1TAB25; +LISI1TAB25 PO; -LISI1TAB8; -LISI1TAB8 PO; +OFLO5DRO33 OT; -OFLO5DRO7 OT
[2019-04-04] MEDS ORDERED: LACTATED RINGERS 1,000 ML IV ONE (16:44)
[2019-04-04 16:51] LABS: BASOPHILS % (AUTO) 0 % (0-10); EOSINOPHILS # (AUTO) 0.1 10^3/uL (0.0-0.3); EOSINOPHILS % (AUTO) 0 % (0-10); HEMATOCRIT 48 % (35-52); HEMOGLOBIN 15.8 G/DL (11.5-16.0); LYMPHOCYTES # (AUTO) 3.2 X 10^3 (1.0-4.0); LYMPHOCYTES % (AUTO) 26 % (12-44); MEAN CORPUSCULAR HEMOGLOBIN 30 PG (25-34); MEAN CORPUSCULAR HGB CONC 33 G/DL (32-36); MEAN CORPUSCULAR VOLUME 92 FL (80-99); MEAN PLATELET VOLUME 10.2 FL (7.4-10.4); MONOCYTES # (AUTO) 1.1 X 10^3 (0.0-1.0); MONOCYTES % (AUTO) 9 % (0-12); NEUTROPHILS # (AUTO) 7.9 X 10^3 (1.8-7.8); NEUTROPHILS % (AUTO) 65 % (42-75); PLATELET COUNT 304 10^3/uL (130-400); RED CELL DISTRIBUTION WIDTH 12.8 % (10.0-14.5); WHITE BLOOD COUNT 12.3 10^3/uL (4.3-11.0)
[2019-04-04 16:55] LABS: BILIRUBIN,URINE NEGATIVE (NEGATIVE); CLARITY,URINE CLEAR; COLOR,URINE YELLOW; GLUCOSE, URINE (UA) NEGATIVE (NEGATIVE); KETONES,URINE NEGATIVE (NEGATIVE); LEUKOCYTE ESTERASE ,URINE 1+ (NEGATIVE); NITRITE,URINE NEGATIVE (NEGATIVE); PH,URINE 6.5 (5-9); PROTEIN,URINE NEGATIVE (NEGATIVE)
[2019-04-04 17:03] LABS: ALANINE AMINOTRANSFERASE 18 U/L (0-55); ALBUMIN 4.7 GM/DL (3.2-4.5); ALKALINE PHOSPHATASE 88 U/L (40-136); BILIRUBIN,TOTAL 0.5 MG/DL (0.1-1.0); BUN/CREATININE RATIO 24; CARBON DIOXIDE 27 MMOL/L (21-32); CHLORIDE 101 MMOL/L (98-107); CREATININE SERUM 0.79 MG/DL (0.60-1.30); GFR ESTIMATED > 60; GLUCOSE 93 MG/DL (70-105); POTASSIUM 3.7 MMOL/L (3.6-5.0); SODIUM 136 MMOL/L (135-145); TOTAL PROTEIN 7.3 GM/DL (6.4-8.2)
[2019-04-04 17:08] LABS: BACTERIA,URINE FEW /HPF
--- NOTE | 2019-04-04 17:16 | ED Abdominal Pain ---
General Chief Complaint: Abdominal/GI Problems Stated Complaint: ABD PAIN Nursing Triage Note: TO ED FROM [facility] WITH ABD PAIN AND POSSIBLE HERNIA Sepsis Screen: No Definite Risk Source of Information: Patient Exam Limitations: No Limitations History of Present Illness Date Seen by Provider: Apr 04, 2019 Time Seen by Provider: 16:38 Initial Comments Here with report of right lower quadrant abdominal pain as well as periumbilical abdominal pain. She does have hernia in the periumbilical region and she states that hurts when she stands up but since Wednesday, she's had increasing pain to the right lower quadrant. Was seen at [facility] and sent here for further evaluation do to the right lower quadrant abdominal pain. Denies dysuria. Has history of kidney stones but doesn't have bloody urine currently. Does have some right flank pain. Timing/Duration: 2-3 Days, Changing Over Time Severity/Quality: Moderate, Aching, Sharp Location: RLQ, Periumbilical Radiation: Groin Activities at Onset: None Modifying Factors: Worsens With Movement Associated Symptoms: Back Pain; No Fever/Chills, No Nausea/Vomiting, No Shortness of Air, No Weakness Allergies and Home Medications Allergies Coded Allergies: No Known Drug Allergies (Unverified , 12/08/17) Home Medications Dextroamphetamine/Amphetamine 25 Mg Cap.er.24h, 25 MG PO DAILY, (Reported) Lisinopril/Hydrochlorothiazide 1 Each Tablet, 1 EACH PO DAILY, (Reported) Patient Home Medication List Home Medication List Reviewed: Yes Review of Systems Review of Systems Constitutional: see HPI; No chills, No fever EENTM: No Symptoms Reported Respiratory: No Symptoms Reported Cardiovascular: No Symptoms Reported Gastrointestinal: See HPI, Abdominal Pain; Denies Constipated Genitourinary: No Symptoms Reported Musculoskeletal: No joint pain; muscle pain Skin: no symptoms reported Psychiatric/Neurological: No Symptoms Reported All Other Systems Reviewed Negative Unless Noted: Yes Past Vjorggd-Tzuykk-Vytqog Hx Past Med/Social Hx: Reviewed Nursing Past Med/Soc Hx Patient Social History Alcohol Use: Denies Use Recreational Drug Use: No Smoking Status: Never a Smoker 2nd Hand Smoke Exposure: No Recent Foreign Travel: No Contact w/Someone Who Travel: No Recent Infectious Disease Expo: No Recent Hopitalizations: No Physical Abuse: No Sexual Abuse: No Mistreated: No Fear: No Immunizations Up To Date Tetanus Booster (TDap): Unknown Seasonal Allergies Seasonal Allergies: Yes (MILD) Past Medical History Surgeries: Yes Bladder Surgery, Gallbladder, Hysterectomy Respiratory: No Sleep Apnea Currently Using CPAP: Yes Cardiac: Yes Hypertension Neurological: No Genitourinary: No UTI-Chronic Gastrointestinal: Yes (RECTAL BLEEDING) Musculoskeletal: No Endocrine: No Loss of Vision: Bilateral Hearing Impairment: Denies Cancer: No Psychosocial: No Depression Integumentary: No Blood Disorders: No Adverse Reaction/Blood Tranf: No (N/A) Family Medical History Reviewed Nursing Family Hx Colon cancer Physical Exam Vital Signs Vital Signs - First Documented 04/04/19 16:07 Temp 36.2 Pulse 82 Resp 18 B/P (MAP) 144/93 (110) Pulse Ox 98 Capillary Refill : Less Than 3 Seconds Height/Weight/BMI Height: 5'0.00" Weight: 220lbs. 0.0oz. [id number]; 44.00 BMI Method:Stated General Appearance: WD/WN, no apparent distress HEENT: PERRL/EOMI, pharynx normal Neck: full range of motion, supple Respiratory: lungs clear, normal breath sounds Cardiovascular: regular rate, rhythm, no murmur Peripheral Pulses: 2+ Dorsalis Pedis (R), 2+ Left Dors-Pedis (L), 2+ Radial Pulses (R), 2+ Radial Pulses (L) Gastrointestinal: soft; No guarding, No rebound; tenderness (periumbilical and right lower quadrant), hernia (periumbilical without incarceration) Extremities: non-tender, normal inspection Back: normal inspection, no CVA tenderness, no vertebral tenderness Neurologic/Psychiatric: alert, oriented x 3 Skin: normal color, warm/dry Progress/Results/Core Measures Results/Orders Lab Results Laboratory Tests Test 04/04/19 16:30 04/04/19 16:46 Range/Units Urine Color YELLOW Urine Clarity CLEAR Urine pH 6.5 5-9 Urine Specific [place] 1.015 L 1.016-1.022 Urine Protein NEGATIVE NEGATIVE Urine Glucose (UA) NEGATIVE NEGATIVE Urine Ketones NEGATIVE NEGATIVE Urine Nitrite NEGATIVE NEGATIVE Urine Bilirubin NEGATIVE NEGATIVE Urine Urobilinogen 0.2 < = 1.0 MG/DL Urine Leukocyte Esterase 1+ H NEGATIVE Urine RBC (Auto) 1+ H NEGATIVE Urine RBC NONE /HPF Urine WBC 2-5 /HPF Urine Squamous Epithelial Cells 5-10 /HPF Urine Crystals NONE /LPF Urine Bacteria FEW H /HPF Urine Casts NONE /LPF Urine Mucus NEGATIVE /LPF Urine Culture Indicated YES White Blood Count 12.3 H 4.3-11.0 10^3/uL Red Blood Count 5.21 4.35-5.85 10^6/uL Hemoglobin 15.8 11.5-16.0 G/DL Hematocrit 48 35-52 % Mean Corpuscular Volume 92 80-99 FL Mean Corpuscular Hemoglobin 30 25-34 PG Mean Corpuscular Hemoglobin Concent 33 32-36 G/DL Red Cell Distribution Width 12.8 10.0-14.5 % Platelet Count 304 130-400 10^3/uL Mean Platelet Volume 10.2 7.4-10.4 FL Neutrophils (%) (Auto) 65 42-75 % Lymphocytes (%) (Auto) 26 12-44 % Monocytes (%) (Auto) 9 0-12 % Eosinophils (%) (Auto) 0 0-10 % Basophils (%) (Auto) 0 0-10 % Neutrophils # (Auto) 7.9 H 1.8-7.8 X 10^3 Lymphocytes # (Auto) 3.2 1.0-4.0 X 10^3 Monocytes # (Auto) 1.1 H 0.0-1.0 X 10^3 Eosinophils # (Auto) 0.1 0.0-0.3 10^3/uL Basophils # (Auto) 0.0 0.0-0.1 10^3/uL Sodium Level 136 135-145 MMOL/L Potassium Level 3.7 3.6-5.0 MMOL/L Chloride Level 101 98-107 MMOL/L Carbon Dioxide Level 27 21-32 MMOL/L Anion Gap 8 5-14 MMOL/L Blood Urea Nitrogen 19 H 7-18 MG/DL Creatinine 0.79 0.60-1.30 MG/DL Estimat Glomerular Filtration Rate > 60 BUN/Creatinine Ratio 24 Glucose Level 93 70-105 MG/DL Calcium Level 10.0 8.5-10.1 MG/DL Corrected Calcium 8.5-10.1 MG/DL Total Bilirubin 0.5 0.1-1.0 MG/DL Aspartate Amino Transf (AST/SGOT) 12 5-34 U/L Alanine Aminotransferase (ALT/SGPT) 18 0-55 U/L Alkaline Phosphatase 88 40-136 U/L C-Reactive Protein High Sensitivity 0.66 H 0.00-0.50 MG/DL Total Protein 7.3 6.4-8.2 GM/DL Albumin 4.7 H 3.2-4.5 GM/DL My Orders Orders - NAWAF HARRIS MD Cbc With Automated Diff (04/04/19 16:44) Comprehensive Metabolic Panel (04/04/19 16:44) Hs C Reactive Protein (04/04/19 16:44) Ua Culture If Indicated (04/04/19 16:44) Ed Iv/Invasive Line Start (04/04/19 16:44) Lactated Ringers (Lr 1000 Ml Iv Solution (04/04/19 16:44) Urine Culture (04/04/19 16:30) Ct Abd/Pelv W (Appendicitis) (04/04/19 17:17) Medications Given in ED Current Medications Medications Dose Ordered Sig/Chemo Route Start Time Stop Time Status Last Admin Dose Admin Iohexol 100 ml ONCE ONCE IV 04/04/19 17:30 04/04/19 17:31 DC 04/04/19 17:40 100 ML Lactated Ringer's 1,000 ml @ 0 mls/hr Q0M ONCE IV 04/04/19 16:44 04/04/19 16:46 DC 04/04/19 16:59 0 MLS/HR Sodium Chloride 100 ml ONCE ONCE IV 04/04/19 17:30 04/04/19 17:31 DC 04/04/19 17:40 80 ML Vital Signs/I&O 04/04/19 16:07 Temp 36.2 Pulse 82 Resp 18 B/P (MAP) 144/93 (110) Pulse Ox 98 Blood Pressure Mean: 110 Progress Progress Note : Progress Note Seen and evaluated. IV, labs, UA, LR 1 L bolus ordered. Patient declined pain and nausea medicine currently. We'll order CT based on UA results. 1710: CT abdomen pelvis with contrast ordered monitor patient. 180: I did discuss the case with Dr. Maxwell. Films reviewed with him.. 1900: We were able to get the hernia reduced. Dr. Maxwell did drop by briefly and will see the patient in the clinic tomorrow. Patient was comfortable with that and so am I. Discharged home with return precautions. Patient verbalize understanding instructions and agreement with plan. Diagnostic Imaging Diagonstic Imaging: CT Plain Films/CT/US/NM/MRI: abdomen, pelvis Comments NAME: [facility] REC#: [id number] PT STATUS: REG ER : 1970 PHYSICIAN: NAWAF HARRIS MD ADMIT DATE: 04/04/19/ER Draft Date of Exam:04/04/19 CT ABD/PELV W (APPENDICITIS) PROCEDURE: CT abdomen and pelvis with contrast, rule out appendicitis. TECHNIQUE: Multiple contiguous axial images were obtained through the abdomen and pelvis after the administration of intravenous contrast. All CT scans use one or more of the following dose optimizing techniques: automated exposure control, MA and/or KvP adjustment based on a patient size and exam type, or iterative reconstruction. INDICATION: Abdominal pain. CORRELATION is made with prior CT from 03/19/2015. The lung bases are clear. No discrete liver mass is detected. Gallbladder is surgically absent. No biliary ductal dilatation is seen. Pancreas and spleen are unremarkable. No adrenal mass is detected. There appears to be a tiny nonobstructing calculus lower pole right kidney. No left-sided renal calculi or ureteral calculi are identified. There is no hydronephrosis. There is a low-density cortical lesion involving the lower pole right kidney measuring 3.1 cm. This compares with 2.[address] This is suggestive of a cyst. Aorta is non-aneurysmal. No central, retroperitoneal or mesenteric lymphadenopathy is detected. Small and large bowel loops are normal caliber. No obstruction is seen. There is diverticulosis of the descending and sigmoid colon. There is some diverticulosis of the transverse colon. No diverticulitis is identified. There is no free fluid or fluid collection. There is a midline ventral hernia just cephalad to the umbilicus. There is some inflammatory stranding in the fat contained within the hernia sac as well as the anterior intra-abdominal fat. This could be owing to some strangulation of omental fat or omental infarction. Bladder is unremarkable. The appendix is unremarkable. IMPRESSION: 1. Tiny nonobstructing right renal calculus. No ureteral calculi or hydronephrosis is detected. 2. Uncomplicated diverticulosis. 3. Midline ventral hernia containing fat. There is inflammatory stranding within the fat of the hernia sac as well as in the anterior abdomen, suspicious for some strangulated fat or omental infarction. No herniated bowel loops or evidence of intestinal obstruction identified. Dictated on workstation # [id number] Dict: 04/04/19 1752 Trans: 04/04/19 1801 [facility] [id number] Interpreted by: JOAQUÍN SAEED MD Electronically signed by: Reviewed: Reviewed by Me Departure Impression Primary Impression: Ventral hernia without obstruction or gangrene Disposition: HOME, SELF-CARE Condition: Improved Departure-Patient Inst. Decision time for Depature: 19:01 Referrals: ALVA MAXWELL CHAD C MD (PCP/Family) Primary Care Physician Patient Instructions: Acute Abdomen (Belly Pain), Adult (DC), Abdominal Hernia (DC) Add. Discharge Instructions: All discharge instructions reviewed with patient and/or family. Voiced understanding. Follow-up with Dr. Maxwell tomorrow between 1 and 2 PM. Return for worse pain, fever, vomiting, weakness, breathing problems or other concerns as needed. Work/School Note: Work Release Form Date Seen in the Emergency Department: Apr 04, 2019 Return to Work: Apr 06, 2019 Restrictions: No Restrictions Copy Copies To 1: ALVA MAXWELL TIMOTHY D MD Apr 04, 2019 17:16
[2019-04-04] MEDS ORDERED: HOLD METFORMIN - RECEIVED CONTRAST 20 ML VIAL IV SCH (17:30)
[2019-04-04] MEDS ORDERED: NS 100 ML (IVPB) BAG IV ONE (17:30)
[2019-04-04] MEDS ORDERED: IOHEXOL 350 MG/ML 100 ML (OMNIPAQUE 350) VIAL IV ONE (17:30)
--- NOTE | 2019-04-04 18:01 | Diagnostic Imaging Report ---
PROCEDURE: CT abdomen and pelvis with contrast, rule out appendicitis. TECHNIQUE: Multiple contiguous axial images were obtained through the abdomen and pelvis after the administration of intravenous contrast. All CT scans use one or more of the following dose optimizing techniques: automated exposure control, MA and/or KvP adjustment based on a patient size and exam type, or iterative reconstruction. INDICATION: Abdominal pain. CORRELATION is made with prior CT from 03/19/2015. The lung bases are clear. No discrete liver mass is detected. Gallbladder is surgically absent. No biliary ductal dilatation is seen. Pancreas and spleen are unremarkable. No adrenal mass is detected. There appears to be a tiny nonobstructing calculus lower pole right kidney. No left-sided renal calculi or ureteral calculi are identified. There is no hydronephrosis. There is a low-density cortical lesion involving the lower pole right kidney measuring 3.1 cm. This compares with 2.[address] This is suggestive of a cyst. Aorta is non-aneurysmal. No central, retroperitoneal or mesenteric lymphadenopathy is detected. Small and large bowel loops are normal caliber. No obstruction is seen. There is diverticulosis of the descending and sigmoid colon. There is some diverticulosis of the transverse colon. No diverticulitis is identified. There is no free fluid or fluid collection. There is a midline ventral hernia just cephalad to the umbilicus. There is some inflammatory stranding in the fat contained within the hernia sac as well as the anterior intra-abdominal fat. This could be owing to some strangulation of omental fat or omental infarction. Bladder is unremarkable. The appendix is unremarkable. IMPRESSION: 1. Tiny nonobstructing right renal calculus. No ureteral calculi or hydronephrosis is detected. 2. Uncomplicated diverticulosis. 3. Midline ventral hernia containing fat. There is inflammatory stranding within the fat of the hernia sac as well as in the anterior abdomen, suspicious for some strangulated fat or omental infarction. No herniated bowel loops or evidence of intestinal obstruction identified. Dictated by: Dictated on workstation # [id number]
--- NOTE | 2019-04-04 18:45 | NUR ---
Dr. Madrid in room #6 visiting with pt et spouse at this time.
[2019-04-04 19:08] VITALS: BP 128/94
[2019-04-06] MEDS ORDERED: ACHD5005 PO (10:25)
[2019-04-06] MEDS ORDERED: DOCU-143 PO (10:25)
== END 2019-04-04 19:08 | disposition home or self-care (01) ==
LOC: EDUNIT# 15:57 → ER 15:58
DX: K43.9 Ventral hernia without obstruction or gangrene (principal); I10 Essential (primary) hypertension; G47.30 Sleep apnea, unspecified; Z99.89 Dependence on other enabling machines and devices; Z80.0 Family history of malignant neoplasm of digestive organs
CPT/HCPCS: 36415; 74177; 80053; 81000; 85025; 86141; 87077; 87088; 87186

== ENCOUNTER → 2019-04-05 | Outpatient (CLI) | payer BC ==
[~2019-04-05] MED LIST changes: +ACHD5005 PO; +CYCL10TA9 PO; +DOCU-143 PO; +GABA-486 PO; +LISI1TAB29 PO; +MELO15TA39; +MONT10TA24 PO; +OMEP40CA27 PO; +PSEU30TA35 PO; +RT-ALBUINH IH; +SPIR50TA4 PO
== END | disposition home or self-care (01) ==
LOC: PREOP 14:33
PROVIDERS: ATTEND Surgery
DX: Z01.818 Encounter for other preprocedural examination (principal)

== ENCOUNTER 2019-04-06 07:05 | Day surgery (SDC) | payer BC ==
[2019-04-06] VITALS (11 sets, daily range): BP systolic 83–112; BP diastolic 42–77
[~2019-04-06] VITALS: Ht 152.4 cm; Wt 100.0 kg
[~2019-04-06 07:05] MED LIST changes: -ACHD5005 PO; -CYCL10TA9 PO; -DOCU-143 PO; -GABA-486 PO; -LISI1TAB29 PO; -MELO15TA39; -MONT10TA24 PO; -OMEP40CA27 PO; -PSEU30TA35 PO; -RT-ALBUINH IH; -SPIR50TA4 PO
[2019-04-06] MEDS ORDERED: LACTATED RINGERS 1,000 ML IV PRN (07:24)
[2019-04-06] MEDS ORDERED: ceFAZolin 2 GM/50 ML NS 50 ML IV ONE (07:30)
[2019-04-06] MEDS ORDERED: CATHETER FLUSH 10 ML SYR IV PRN (07:30)
[2019-04-06] MEDS ORDERED: BUP/EPI 0.5% 1:200,000 (SENSORCAINE) 30 ML VIAL ONE (07:38)
--- NOTE | 2019-04-06 07:43 | Progress Note-Pre Operative ---
Pre-Operative Progress Note H&P Reviewed The H&P was reviewed, patient examined and no changes noted. Date Seen by Provider: Apr 06, 2019 Time Seen by Provider: 07:43 Date H&P Reviewed: Apr 06, 2019 Time H&P Reviewed: 07:43 Pre-Operative Diagnosis: incisional hernia ALVA MAXWELL DO Apr 06, 2019 07:43
[2019-04-06] MEDS ORDERED: FAMOTIDINE 20MG/2ML IV (PEPCID) ONE (08:31)
[2019-04-06] MEDS ORDERED: ONDANSETRON 4 MG/2 ML (SDV) Z0FRAN ONE ×2 (08:31→08:45)
[2019-04-06] MEDS ORDERED: SCOPOLAMINE 1.5 MG (TRANSDERM-SCOP) PATCH ONE (08:31)
[2019-04-06] MEDS ORDERED: RT-ALBUTEROL SULF 2.5 MG/3 ML PRE-MIX VIAL ONE (08:42)
[2019-04-06] MEDS ORDERED: SEVOFLURANE (ULTANE) 15 ML INHAL SOLN ONE (08:45)
[2019-04-06] MEDS ORDERED: MIDAZOLAM 2 MG/2 ML (VERSED) VIAL ONE (08:45)
[2019-04-06] MEDS ORDERED: ROCURONIUM 10 MG/ML 5 ML SYRINGE IV ONE (08:45)
[2019-04-06] MEDS ORDERED: proPOfol 200 MG/20 ML (DIPRIVAN) VIAL IV ONE (08:45)
[2019-04-06] MEDS ORDERED: fentaNYL INJECTION 100 MCG/2 ML AMP IVP ONE ×3 (08:45→11:45)
[2019-04-06] MEDS ORDERED: morphine INJ 10 MG/ML 1ML (SYR OR VIAL) IVP ONE ×3 (08:45→11:45)
[2019-04-06] MEDS ORDERED: fentaNYL INJECTION 100 MCG/2 ML AMP ONE ×3 (08:45→10:51)
[2019-04-06] MEDS ORDERED: MEPERIDINE (DEMEROL) INJ 50 MG/ML IVP ONE ×3 (08:45→11:45)
[2019-04-06] MEDS ORDERED: ONDANSETRON 4 MG/2 ML (SDV) Z0FRAN IVP PRN ×3 (08:45→11:45)
[2019-04-06] MEDS ORDERED: LIDOCAINE PF 2% 5 ML (XYLOCAINE) VIAL ONE (08:45)
[2019-04-06] MEDS ORDERED: DEXAMETHASONE 10 MG/ML (DECADRON) 1 ML VIAL ONE (08:45)
[2019-04-06] MEDS ORDERED: GLYCOPYRROLATE 0.2 MG/ML (ROBINUL) 2 ML VIAL ONE ×2 (08:48→10:03)
[2019-04-06] MEDS ORDERED: NEOSTIGMINE 3 MG/3 ML VIAL ONE (08:48)
[2019-04-06] MEDS ORDERED: OMEP40CA27 PO (08:56)
[2019-04-06] MEDS ORDERED: GABA-486 PO (08:56)
[2019-04-06] MEDS ORDERED: LISI1TAB29 PO (08:56)
[2019-04-06] MEDS ORDERED: SPIR50TA4 PO (08:56)
[2019-04-06] MEDS ORDERED: MELO15TA39 (08:56)
[2019-04-06] MEDS ORDERED: MONT10TA24 PO (08:56)
[2019-04-06] MEDS ORDERED: RT-ALBUINH IH (08:56)
[2019-04-06] MEDS ORDERED: PSEU30TA35 PO (08:56)
[2019-04-06] MEDS ORDERED: PHENYLEPHRINE 100 MCG/ML 10 ML (ANESTHESIA) SYR ONE (09:58)
[2019-04-06] MEDS ORDERED: FAMOTIDINE 20MG/2ML IV (PEPCID) IV ONE (10:00)
[2019-04-06] MEDS ORDERED: SCOPOLAMINE 1.5 MG (TRANSDERM-SCOP) PATCH TOP ONE (10:00)
[2019-04-06] MEDS ORDERED: ONDANSETRON 4 MG/2 ML (SDV) Z0FRAN IV ONE (10:00)
--- NOTE | 2019-04-06 10:21 | Progress Note-Post Operative ---
Post-Operative Progess Note Surgeon (s)/Foxpro Developer (s) Surgeon ALVA MAXWELL DO Foxpro Developer: Dr. Goodrich Pre-Operative Diagnosis incisional hernia Post-Operative Diagnosis incisional hernia with incarcerated fat Procedure & Operative Findings Date of Procedure 04/06/19 Procedure Performed/Findings lap incarcerated incisional hernia repair with mesh Anesthesia Type gen Estimated Blood Loss Estimated blood loss (mL): min Specimens/Packing Specimens Removed hernia contents ALVA MAXWELL DO Apr 06, 2019 10:21
[2019-04-06] MEDS ORDERED: ACHD5005 PO (10:25)
[2019-04-06] MEDS ORDERED: DOCU-143 PO (10:25)
--- NOTE | 2019-04-06 10:26 | Discharge Inst-Simple/Standard ---
Discharge Inst-Standard Discharge Medications New, Converted or Re-Newed RX: RX on Chart Patient Instructions/Follow Up Plan of Care/Instructions/FU: 2-3 weeks Julius Activity as Tolerated: No Discharge Diet: Regular Diet Other Inst to Patient Follow up Appt: Make appointment for 2-3 week. Instructions: No lifting greater than 10 pounds. No strenuous activity. May shower in 24 hours, no tub bath or soaking. Use incentive spirometer at home as directed. No Smoking Skin/Wound Care: You have special glue over incisions it will fall off on its own. Symptoms to Report: Appetite Changes, Extremity Discoloration, Numbness/Tingling, Swelling Increased, Bleeding Excessive, Eyesight Changes, Pain Increased, Urine Color Change, Constipation(Persistent), Fever over 101 degree F, Pain/Pressure in ch est, Urinating Difficulty, Cough Up/Vomit Blood, Heart Beat Irreg/Pounding, Pain/Pressure in jaw, Vaginal Bleeding Increase, Cramps in feet or legs, Lightheadedness, Pain/Pressure in shoulder, Diarrhea(Persistent), Memory Changes Suddenly, Questions/Concerns, Weight gain consecutive days, Dizziness/Fainting, Nausea/Vomiting, Shortness of Breath, Weight gain over 2 pounds If questions or concerns contact your physician Or seek help at emergency department. ALVA MAXWELL DO Apr 06, 2019 10:26
[2019-04-06] MEDS ORDERED: HYDROcodone/APAP 5 MG/325 MG (LORTAB) TAB PO PRN (10:30)
[2019-04-06] MEDS ORDERED: HYDROcodone/APAP 5 MG/325 MG (LORTAB) TAB ONE (11:30)
--- NOTE | 2019-04-06 11:31 | Anesthesia-General Post-Op ---
General Patient Condition Mental Status/LOC: Same as Preop Cardiovascular: Satisfactory Nausea/Vomiting: Absent Respiratory: Satisfactory Pain: Controlled Complications: Absent Post Op Complications Complications None Follow Up Care/Instructions Patient Instructions None needed. Anesthesia/Patient Condition Patient Condition Patient is doing well, no complaints, stable vital signs, no apparent adverse anesthesia problems. No complications reported per nursing. MANISH FRANCO CRNA Apr 06, 2019 11:31
--- NOTE | 2019-04-06 11:50 | NUR ---
ABD BINDER APPLIED FOR PT COMFORT
[2019-04-06] MEDS ORDERED: CYCLOBENZAPRINE 10 MG (FLEXERIL) TAB PO ONE (13:15)
--- NOTE | 2019-04-06 13:15 | NUR ---
DR MAXWELL NOTIFIED OF HYPOTENSION ET CONT PAIN. ORDERS REC'D TO BOLUS REMAINDER OF 2ND LITER OF LR. FLEXERIL ORDERED FOR PAIN. PT REFUSED DOSE OF FLEXERIL PRIOR TO DC. RX CALLED TO [facility] REQUESTED BY PT.
[2019-04-06] MEDS ORDERED: CYCL10TA9 PO (13:25)
--- NOTE | 2019-04-06 15:55 | OPERATIVE REPORT ---
DATE OF SERVICE: 04/06/2019 PREOPERATIVE DIAGNOSIS: Incisional hernia. POSTOPERATIVE DIAGNOSIS: Incarcerated incisional hernia. PROCEDURE: Laparoscopic incarcerated incisional hernia repair. SURGEON: Alva Madrid DO RETAIL ASSISTANT STORE MANAGER: Dr. Goodrich, assisted in retraction, dissection, and closure. ANESTHESIA: General. ESTIMATED BLOOD LOSS: Minimal. COMPLICATIONS: None. INDICATIONS: The patient is a 48-year-old female with incisional hernia and she is having increased pain with. She understands risks and benefits of procedure and wished to proceed with procedure. Consent was signed in the chart. DESCRIPTION OF PROCEDURE: The patient was taken into the operating suite, prepped and draped in sterile fashion. Surgical pause was performed. Local anesthetic was infiltrated in left upper quadrant. A 15 blade scalpel was used to make a small skin incision. Cautery was used to dissect down to the fascia, which was then scored and divided the muscle, went through the posterior sheath and a balloon trocar was inserted into the abdomen. The abdomen was then insufflated. There was some omentum stuck up through the hernia, which was taken down. The picture of the defect was present. A 5 mm trocar was placed in the right lower quadrant and a 5 mm trocar was placed in left lower quadrant. A fat pad was present for which hook cautery was used to to take down the fat pad inferiorly. There was some fat that was incarcerated just inferior to the defect up through the hernia defect. This was then removed and sent for pathology. The defect was then closed using 0 Vicryl with a Gurmeet-Ileana. A 4-1/2-inch Echo Ventralight mesh was then inserted in the abdomen grabbed through the stab incision. I closed the defect and the balloon was inflated. Circumferential tacks were placed with a SecureStrap Tacker. The balloon was then removed and inner crown was created as well. The mesh was tacked with pressure being decreased to 8 mmHg. The 12 mm fascial defect was then closed using 0 Vicryl and Gurmeet-Ileana in a [id number] fashion. The abdomen was then desufflated, the trocars were removed. The skin was then closed using 4-0 Monocryl in a running subcuticular fashion. The abdomen was washed and dried and Skin Affix was placed over the incisions. The patient tolerated procedure well without any complications. She was taken to recovery room in stable condition. Job ID: [id number] DocumentID: [id number] Dictated Date: 04/06/2019 13:05:30 [place] [employer] [place] Date: 04/06/2019 15:55:04 Dictated By: ALVA MADRID DO
[2019-04-09] MEDS ORDERED: SCOPOLAMINE PATCH REMOVAL TP SCH (10:00)
== END 2019-04-06 14:00 | disposition home or self-care (01) ==
LOC: SDC 07:05
PROVIDERS: ATTEND Surgery
DX: K43.0 Incisional hernia with obstruction, without gangrene (principal); I10 Essential (primary) hypertension; J45.909 Unspecified asthma, uncomplicated; E16.2 Hypoglycemia, unspecified; F32.9 Major depressive disorder, single episode, unspecified; Z90.49 Acquired absence of other specified parts of digestive tract; Z87.891 Personal history of nicotine dependence; Z90.710 Acquired absence of both cervix and uterus; Z88.8 Allergy status to other drugs, medicaments and biological substances; Z80.3 Family history of malignant neoplasm of breast; Z83.3 Family history of diabetes mellitus
CPT/HCPCS: 87081; 94640; 94664

== ENCOUNTER → 2019-10-20 | Outpatient (CLI) | payer BC ==
[~2019-10-20] MED LIST changes: +ACHD5005 PO; +CYCL10TA9 PO; +DOCU-143 PO; +GABA-486 PO; +LISI1TAB29 PO; +MELO15TA39; +MONT10TA26 PO; +OMEP40CA27 PO; +PSEU30TA35 PO; +RT-ALBUINH IH; +SPIR50TA4 PO
== END ==
LOC: CARD 14:00
PROVIDERS: ATTEND Family Medicine
DX: I49.3 Ventricular premature depolarization (principal)
CPT/HCPCS: 93225; 93226

== ENCOUNTER → 2020-05-24 | Outpatient (CLI) | payer BC ==
[~2020-05-24] MED LIST changes: -LISI1TAB25; -LISI1TAB25 PO; +LISI1TAB46; +LISI1TAB46 PO; -MONT10TA26 PO; +MONT10TA32 PO; +PS30T PO; -PSEU30TA35 PO
--- NOTE | 2020-05-24 11:38 | Diagnostic Imaging Report ---
EXAMINATION: Ultrasound of the left breast limited. INDICATION: Left axillary lump. FINDINGS: The previous left breast ultrasound exam performed on 03/26/2016 failed to show any discrete solid or cystic mass in the upper outer aspect of the left breast or in the left axilla. On this study, there is still no discrete solid or cystic mass identified. It may be that the palpable abnormality in question is related to fibroglandular tissue or fat; however, if clinical concern regarding an underlying abnormality persists, then biopsy should still be considered. IMPRESSION: There is no discrete solid or cystic mass in the upper outer aspect of the left breast or the left axilla. Clinical followup is recommended. ACR BI-RADS Category 1: Negative. Result letter will be mailed to the patient. Note: At least 10% of breast cancer is not imaged by mammography. Dictated by: Dictated on workstation # [id number]
--- NOTE | 2020-05-26 18:22 | Diagnostic Imaging Report ---
INDICATION: Screening. EXAMINATION: Digital mammogram bilateral screening with CAD. 3D tomographic images were obtained and reviewed. The current study was also evaluated with a Computer Aided Detection (CAD) system. COMPARISON: This study was compared to the prior exams of 02/13/2015 and 09/25/2011. FINDINGS: At this time the patient has no current complaints. However she does note a fullness in the left axilla with some pain. She has had similar complaints in this area in the past. The fibroglandular tissue in both breasts is heterogeneously dense. This does limit the sensitivity of this exam. There is no primary or secondary sign of malignancy noted. Furthermore, there is no abnormality involving the left axilla to account for the patient's pain. Reportedly, ultrasound of the left breast and axilla is pending for further study. IMPRESSION: 1. There is no evidence for malignancy. 2. Ultrasound of the left breast and axilla is pending for further study. ACR BI-RADS Category 0: Incomplete. (Needs additional imaging evaluation). Result letter will be mailed to the patient. Note: At least 10% of breast cancer is not imaged by mammography. Dictated by: Dictated on workstation # [id number]
== END ==
LOC: RAD 10:30
PROVIDERS: ATTEND Family Medicine
DX: Z12.31 Encounter for screening mammogram for malignant neoplasm of breast (principal)
CPT/HCPCS: 76642; 77063; 77067

== ENCOUNTER → 2020-06-05 | Outpatient (CLI) | payer BC ==
[~2020-06-05] MED LIST changes: +CATHETER FLUSH 10 ML SYR IV PRN; +HOLD METFORMIN - RECEIVED CONTRAST 20 ML VIAL IV SCH; +IOHEXOL 350 MG/ML 100 ML (OMNIPAQUE 350) VIAL IV ONE; +NS 100 ML (IVPB) BAG IV ONE
[2020-06-05 09:05] LABS: BUN/CREATININE RATIO 18; CALCIUM 9.4 MG/DL (8.5-10.1); CARBON DIOXIDE 21 MMOL/L (21-32); CHLORIDE 104 MMOL/L (98-107); CREATININE SERUM 0.68 MG/DL (0.60-1.30); GFR ESTIMATED > 60; GLUCOSE 96 MG/DL (70-105); POTASSIUM 4.2 MMOL/L (3.6-5.0); SODIUM 138 MMOL/L (135-145)
--- NOTE | 2020-06-05 10:00 | Diagnostic Imaging Report ---
PROCEDURE: CT chest and abdomen with contrast. TECHNIQUE: Multiple contiguous axial images were obtained through the chest and abdomen after the administration of intravenous contrast. Auto Exposure Controls were utilized during the CT exam to meet ALARA standards for radiation dose reduction. INDICATION: Right supraclavicular swelling. Comparison is made with prior CT abdomen from 04/04/2019. CT CHEST: 1. No definite supraclavicular lymphadenopathy is seen. No axillary lymphadenopathy is detected. No mediastinal or hilar lymphadenopathy is detected. There is no pericardial or pleural fluid identified. No pulmonary infiltrates, nodules or masses are detected. IMPRESSION: Unremarkable CT of the chest. CT ABDOMEN: Low density throughout the liver is noted consistent with hepatic steatosis. No liver mass is identified. Gallbladder appears to be surgically absent. Pancreas and spleen are unremarkable. No adrenal mass is identified. Kidneys appear to be stable. Right renal cyst is again noted and appears fairly stable. Aorta is nonaneurysmal. The bowel loops are normal caliber. There is no obstruction. As no ascites. IMPRESSION: Hepatic steatosis and right renal cyst. No acute featuring the abdomen is identified. Dictated by: Dictated on workstation # [id number]
== END ==
LOC: RAD 09:45
PROVIDERS: ATTEND Family Medicine
DX: N28.1 Cyst of kidney, acquired (principal); K76.0 Fatty (change of) liver, not elsewhere classified; R22.31 Localized swelling, mass and lump, right upper limb; M35.1 Other overlap syndromes
CPT/HCPCS: 36415; 71260; 74160; 80048

== ENCOUNTER → 2020-08-07 | Outpatient (CLI) | payer BC ==
[~2020-08-07] MED LIST changes: -CATHETER FLUSH 10 ML SYR IV PRN; -HOLD METFORMIN - RECEIVED CONTRAST 20 ML VIAL IV SCH; -IOHEXOL 350 MG/ML 100 ML (OMNIPAQUE 350) VIAL IV ONE; -NS 100 ML (IVPB) BAG IV ONE
--- NOTE | 2020-08-07 12:40 | Diagnostic Imaging Report ---
EXAMINATION: Ultrasound of the right neck. INDICATION: Right neck mass. COMPARISON: There are no prior ultrasound examinations available for comparison. FINDINGS: The CT neck exam of 01/23/2016 failed to show any sign of a mass on either side of the neck. On this exam, there is no discrete solid or cystic mass identified. There is no sign of an abscess either. If clinical concern regarding an underlying abnormality persists, then a repeat CT neck exam with intravenous contrast would be recommended. IMPRESSION: There is no discrete solid or cystic mass within the right neck and there is no sign of an abscess. Additional considerations and recommendations as above. Dictated by: Dictated on workstation # [id number]
== END ==
LOC: RAD 10:15
PROVIDERS: ATTEND Family Medicine
DX: R22.1 Localized swelling, mass and lump, neck (principal)
CPT/HCPCS: 76536

== ENCOUNTER → 2020-08-13 | Outpatient (CLI) | payer BC ==
--- NOTE | 2020-08-13 18:07 | Diagnostic Imaging Report ---
PROCEDURE: CT head and neck without contrast. TECHNIQUE: Contiguous axial images were obtained from the skull base through the vertex. Noncontrast axial images were then obtained of the soft tissue of the neck. Auto Exposure Controls were utilized during the CT exam to meet ALARA standards for radiation dose reduction. INDICATION: Right neck pain and swelling. Correlation is made with prior neck CT from 01/23/2016. No prior head CT is available for comparison. CT HEAD: The ventricles and sulci are within normal limits. No sulcal effacement or midline shift is identified. No acute intra-axial or extra-axial hemorrhage is detected. Cisterns are patent. Visualized paranasal sinuses demonstrate small mucous retention cyst or polyp in the left maxillary sinus. Mastoids are well aerated. IMPRESSION: No acute intracranial process is detected. CT NECK: Bilateral submandibular and parotid glands are symmetric. No discrete mass is seen. The posterior nasopharynx and oropharynx are unremarkable. Parapharyngeal fat planes are preserved. Epiglottis and larynx are unremarkable. No discrete thyroid mass is detected. No supraclavicular lymphadenopathy is seen. There are normal-sized jugulodigastric and posterior cervical chain lymph nodes. No fluid collection or lymphadenopathy is seen. IMPRESSION: Unremarkable noncontrast CT of the soft tissues of the neck. No mass or fluid collection is identified. Dictated by: Dictated on workstation # [id number]
== END ==
LOC: RAD 16:38
PROVIDERS: ATTEND Family Medicine
DX: M54.2 Cervicalgia (principal); R22.1 Localized swelling, mass and lump, neck
CPT/HCPCS: 70450; 70490

== ENCOUNTER → 2020-11-25 | Outpatient (CLI) | payer BC ==
[~2020-11-25] MED LIST changes: -OMEP40CA27 PO; +OMEP40CA6 PO
--- NOTE | 2020-11-25 20:02 | Diagnostic Imaging Report ---
INDICATION: Toe swelling and numbness. Pain. COMPARISON: None. FINDINGS: Two views of the right tibia and fibula were obtained and show no fractures, dislocations, or other acute bony abnormalities. Joint spaces are well maintained throughout. The soft tissues appear unremarkable. No radiopaque foreign bodies are identified. IMPRESSION: Unremarkable radiographic exam of the right tibia and fibula. Dictated by: Dictated on workstation # [id number]
--- NOTE | 2020-11-25 20:35 | Diagnostic Imaging Report ---
INDICATION: Right foot pain COMPARISON: None FINDINGS: 3 views of the right foot demonstrate no fracture or dislocation. Calcaneal osteophytosis is seen. There is no bony erosion or degeneration. No foreign body. IMPRESSION: Negative right foot Dictated by: Dictated on workstation # [id number]
== END ==
LOC: RAD 17:14
PROVIDERS: ATTEND Family Medicine
DX: M79.674 Pain in right toe(s) (principal); M79.89 Other specified soft tissue disorders
CPT/HCPCS: 73590; 73630

== ENCOUNTER → 2021-02-27 | Outpatient (CLI) | payer BC ==
[~2021-02-27] MED LIST changes: +CYCL10TA25 PO; -CYCL10TA9 PO; -LISI1TAB29 PO; +LISI1TAB44 PO; +MONT-40 PO; -MONT10TA32 PO
--- NOTE | 2021-02-27 09:41 | Diagnostic Imaging Report ---
Right knee at 9:30. INDICATION: Knee pain 3 views were obtained. There is no fracture, dislocation or acute bony abnormality evident. The knee joint is fairly well maintained and seems similar to the prior right tibia and fibula exam of 11/25/2020. There may be a small joint effusion. The soft tissues are otherwise unremarkable. IMPRESSION: 1. There is no acute bony abnormality identified. 2. There is a question of a small joint effusion. Dictated by: Dictated on workstation # [id number]
== END ==
LOC: RAD 08:59
PROVIDERS: ATTEND Family Medicine
DX: M25.561 Pain in right knee (principal)
CPT/HCPCS: 73562

== ENCOUNTER → 2021-09-19 | Outpatient (CLI) | payer BC ==
--- NOTE | 2021-09-19 11:18 | Diagnostic Imaging Report ---
HISTORY: Masses in the right upper extremity. COMPARISON: None. TECHNIQUE: Ultrasound of the soft tissues about the right shoulder. FINDINGS: The soft tissues in the areas of interest inferior to the right scapula as well as the right supraclavicular region were scanned to evaluate reported palpable abnormalities. No masses or fluid collections are seen in these regions. No abnormality is identified. IMPRESSION: 1. No soft tissue masses or fluid collections seen in the areas of interest about the right shoulder. Dictated by: Dictated on workstation # [id number]
== END ==
LOC: RAD 09:22
PROVIDERS: ATTEND Family Medicine
DX: R22.31 Localized swelling, mass and lump, right upper limb (principal)
CPT/HCPCS: 76881

== ENCOUNTER → 2021-12-05 | Outpatient (CLI) | payer BC ==
--- NOTE | 2021-12-05 13:09 | Diagnostic Imaging Report ---
PROCEDURE: CT chest, abdomen, and pelvis without contrast. TECHNIQUE: Multiple contiguous axial images were obtained through the chest, abdomen, and pelvis without the use of intravenous contrast. Auto Exposure Controls were utilized during the CT exam to meet ALARA standards for radiation dose reduction. INDICATION: Palpable masses in the chest medial to the scapula as well as in the right inguinal region. CORRELATION is made with prior CT of the chest and abdomen from 06/05/2020. CT CHEST: A BB marker is placed at an area of palpable abnormality in the posterior right thorax at the level of the upper right scapula. No underlying abnormality is seen. No mass or fluid collection is identified. No definite axillary, hilar or mediastinal lymphadenopathy is detected. No pericardial or pleural fluid is detected. No pulmonary infiltrates, nodules or masses are seen. IMPRESSION: 1. Unremarkable CT of the chest. CT ABDOMEN AND PELVIS: The liver is unremarkable. Gallbladder is surgically absent. No biliary ductal dilatation is seen. The pancreas and spleen are unremarkable. No adrenal mass is detected. Exophytic low-attenuation lesion extending laterally from the right kidney is slightly larger in size at 4.1 cm compared with 3.5 cm on prior exam. This appears to be an enlarging cyst. No calculi or hydronephrosis is seen. Aorta is nonaneurysmal. There is a fat-containing umbilical hernia. Bowel loops are normal caliber. There is diverticulosis of the descending and sigmoid colon but no evidence of acute diverticulitis. There is no free fluid or fluid collection identified. Bladder is unremarkable. Uterus is absent. No groin mass is identified. IMPRESSION: 1. Slight increase in size of right renal cyst since exam from 06/05/2020. 2. Small fat-containing umbilical hernia. 3. Uncomplicated diverticulosis. 4. No other significant abnormality is seen. Dictated by: Dictated on workstation # [id number]
== END ==
LOC: RAD 11:48
PROVIDERS: ATTEND Family Medicine
DX: N28.1 Cyst of kidney, acquired (principal); K42.9 Umbilical hernia without obstruction or gangrene; K57.90 Diverticulosis of intestine, part unspecified, without perforation or abscess without bleeding; Z90.49 Acquired absence of other specified parts of digestive tract
CPT/HCPCS: 71250; 74176